=== PATIENT | male | born 1950 | race Two or more races ===

== ENCOUNTER 2018-05-29 14:31 | Emergency (ER) | payer OTHER ==
[~2018-05-29] VITALS: Ht 180.3 cm; Wt 93.9 kg
[2018-05-29 14:46] VITALS: Ht 180.3 cm; Wt 93.9 kg
[2018-05-29 16:04] LABS: BASOPHIL % 0.4 % (0-2); PLATELET COUNT 290 x10^3mcL (130-400); RED CELL DISTRIBUTION WIDTH 13.2 % (11.5-14.5)
[2018-05-29 16:10] LABS: CALCIUM 8.4 mg/dL (8.5-10.1); CARBON DIOXIDE 29.6 mmol/L (21-32); CHLORIDE SERUM 103 mmol/L (98-107); GFR1 > 60 mL/min; GLUCOSE SERUM 113 mg/dL (74-106); POTASSIUM SERUM 3.5 mmol/L (3.5-5.1); SODIUM SERUM 137 mmol/L (136-145)
[2018-05-29 16:17] LABS: ALKALINE PHOSPHATASE 83 U/L (46-116); AST/SGOT 22 U/L (15-37); BILIRUBIN TOTAL 0.2 mg/dL (0.20-1.00); CHOLESTEROL 184 mg/dL (<200); TRIGLYCERIDES 98 mg/dL (<150)
[2018-05-29 16:23] LABS: FREE T4 0.88 ng/dL (0.76-1.46); FREE THYROXINE INDEX 2.1 ug/dL (1.4-4.5); T4(THYROXINE) 6.5 ug/dL (4.7-13.3)
[2018-05-29 16:24] LABS: ALBUMIN 2.7 g/dL (3.4-5.0); CHOLESTEROL/HDL RATIO 2.8; HDL CHOLESTEROL 66 mg/dL (40-60); TOTAL PROTEIN, SERUM 5.9 g/dL (6.4-8.2)
[2018-05-29 16:30] LABS: ALT/SGPT 24 U/L (16-63)
[2018-05-29 16:35] LABS: T3 TOTAL 1.2 ng/mL
[2018-05-29 17:06] VITALS: BP 146/71
== END 2018-05-29 17:06 | disposition home or self-care (01) ==
LOC: ED 14:31
PROVIDERS: Specialist
DX: L03.115 Cellulitis of right lower limb (principal); I10 Essential (primary) hypertension
CPT/HCPCS: 36415; 83880; 84439; Q0092